=== PATIENT | female | born 1940 | race Caucasian/White ===

== ENCOUNTER 2023-10-20 13:33 | Emergency (ER) | payer MEDICARE, SELFPAY ==
[2023-10-20 13:41] VITALS: BP 152/96; PULSE 72; RESP 16; TEMP 37.1; O2SAT 95
--- NOTE | 2023-10-20 14:02 | ED_ITS ---
HPI - Recheck/Abnormal Lab/Rx 2 General: Chief Complaint: Recheck/Abnormal Lab/Rx Stated Complaint: sent ovewr by , uti, pain all over Time Seen by Provider: 10/20/23 13:41 Source: patient Mode of arrival: ambulatory Limitations: no limitations History of Present Illness: 83-year-old female who is sent here by h er PCP for possible UTI states she has had a UTI intermittently over the last 6 weeks she is on 2 rounds antibiotics states that today she had some urinary urgency she has had some bodyaches as well. She denies any severe pain denies any fever denies any vomiting or diarrhea denies any worsening improving factors. Review of Systems 2 Const: Denies: fever(s) or chills ENMT: Denies: throat pain or dental pain Card: Denies: chest pain Resp: Denies: dyspnea GI: Denies: abdominal pain, nausea, vomiting or diarrhea : Reports: urinary frequency; Denies: dysuria Musc: Denies: neck pain or back pain Skin/Breast: Denies: rash Neuro: Denies: headache(s) Physical Exam 2 Const: COMMON NORMALS: no acute distress, patient oriented x3 and healthy appearing HENMT: COMMON NORMALS: normocephalic and atraumatic HEAD & SCALP: n ormocephalic and atraumatic Neck/C-Spine: COMMON NORMALS: full ROM and supple Chest: COMMONS NORMALS: normal inspection of the chest Resp: COMMON NORMALS: normal respiratory effort, No retractions, No use of accessory muscles and clear to auscultation bilaterally AUSCULTATION: clear to auscultation bilaterally Cardio: COMMON NORMALS: regular rate, regular rhythm and No murmurs present (Cardio) RATE: regular rate RHYTHM: regular rhythm GI: COMMON NORMALS: Normal to inspection, nondistended, normoactive bowel sounds present, Soft to palpation, non-tender and no masses PALPATION: Yes Soft to palpation Extremity: COMMON NORMALS: normal to inspection and full ROM Neuro: COMMON NORMALS: patient oriented x3, moves all extremities and no focal motor deficits Psych: COMMON NORMALS: mental status grossly normal, Normal thought process present and cooperative THOUGHT PROCESS: Normal thought process present Skin: COMMON NORMALS: no rashes or lesions noted and no wounds GENERAL SKIN EXAM: no rashes or lesions noted Course 2 Vital Signs: Vital signs: Vital Signs Temperature 98.8 F 02/07/24 13:41 Pulse Rate 72 10/20/23 13:41 Respiratory Rate 16 10/20/23 13:41 Blood Pressure 152/96 10/20/23 13:41 Pulse Oximetry 95 10/20/23 13:41 Oxygen Delivery Me thod Room Air 10/20/23 13:41 MDM - Recheck/Abnormal Lab/Rx Medical Decision Making Patient presents here with bodyaches concern for UTI blood work urine here is all normal she is well-appearing here she stable for discharge she is follow-up with PCP and return if worsening. Medical Records I reviewed the patient's medical records. Lab Data I reviewed the patient's lab results. 10/20/23 13:58 10/20/23 13:58 Laboratory Results WBC 10.21 10^3/uL (3.29-11.43) 10/20/23 13:58 RBC 4.56 10^6/uL (3.85-5.65) 10/20/23 13:58 Hgb 12.50 g/dL (11.27-16.99) 10/20/23 13:58 Hct 40.0 % (36-47) 10/20/23 13:58 MCV 87.7 fl (85-98) 10/20/23 13:58 MCH 27.4 pg (27-33) 10/20/23 13:58 MCHC 31.3 g/dL (30-55) 10/20/23 13:58 RDW 13.6 % (12.1-15.1) 10/20/23 13:58 Plt Count 363 10^3/cmm (157-399) 10/20/23 13:58 MPV 11.0 fL (7.4-10.4) H 10/20/23 13:58 Neut % (Auto) 66.9 % 10/20/23 13:58 Lymph % (Auto) 20.0 % 10/20/23 13:58 [place] % (Auto) 10.4 % 10/20/23 13:58 Eos % (Auto) 1.5 % 10/20/23 13:58 Baso % (Auto) 0.8 % 10/20/23 13:58 Neut # (Auto) 6.84 10^3/uL (1.8-7.7) 10/20/23 13:58 Lymph # (Auto) 2.0 10^3/uL (0.8-4.8) 10/20/23 13:58 [place] # (Auto) 1.1 10^3/uL (0.2-0.9) H 10/20/23 13:58 Eos # (Auto) 0.2 10^3/uL (0.0-0.8) 10/20/23 13:58 Baso # (Auto) 0.1 10^3/uL (0.0-0.1) 10/20/23 13:58 Nucleated RBC % (auto) 0 % 10/20/23 13:58 Nucleated RBCs # 0.0 /100WBC 10/20/23 13:58 Sodium 134 mmol/L (136-145) L 10/20/23 13:58 Potassium 4.5 mmol/L (3.5-5.1) 10/20/23 13:58 Chloride 99 mmol/L (98-107) 10/20/23 13:58 Carbon Dioxide 24 mmol/L (22-29) 10/20/23 13:58 Anion Gap 15.5 (5-19) 10/20/23 13:58 BUN 19 mg/dL (8-23) 10/20/23 13:58 Creatinine 1.0 mg/dL (0.5-0.9) H 10/20/23 13:58 GFR Calculation Not Reportable 10/20/23 13:58 Glucose 97 mg/dL (65-115) 10/20/23 13:58 Calculated Osmolality 280 mOsm/kg (285-295) L 10/20/23 13:58 Calcium 9.5 mg/dL (8.5-10.5) 10/20/23 13:58 Total Bilirubin 0.3 mg/dL (0.15-1.2) 10/20/23 13:58 AST 20 U/L (0-32) 10/20/23 13:58 ALT 14 U/L (0-33) 10/20/23 13:58 Alkaline Phosphatase 91 U/L (35-105) 10/20/23 13:58 Total Protein 7.8 g/dL (6.6-8.7) 10/20/23 13:58 Albumin 3.8 g/dL (3.5-5.2) 10/20/23 13:58 Globulin 4.0 g/dL (1.3-4.6) 10/20/23 13:58 Urine Color Yellow (Yellow) 10/20/23 13:54 Urine Appearance Clear (CLEAR) 10/20/23 13:54 Urine pH 6 (5-7) 10/20/23 13:54 Ur Specific [place] 1.010 (1.005-1.030) 10/20/23 13:54 Urine Protein Neg (Negative) 10/20/23 13:54 Urine Glucose (UA) Norm (Normal) 10/20/23 13:54 Urine Ketones Negative (Negative) 10/20/23 13:54 Urine Blood 2+ (Negative) H 10/20/23 13:54 Urine Nitrate Negative (Negative) 10/20/23 13:54 Urine Bilirubin Neg (Negative) 10/20/23 13:54 Urine Urobilinogen Norm mg/dL (Negative) 10/20/23 13:54 Ur Leukocyte Esterase Negative (Negative) 10/20/23 13:54 Amorphous Sediment Not Reportable 10/20/23 13:54 All radiology interpretation(s) finalized by discharge Discharge Plan Discharge Patient Disposition: Home Clinical Impression: Myalgia Condition: Stable Prescriptions: New Naprosyn 500 mg tablet 500 mg PO BID PRN (Reason: pain) Qty: 20 0RF No Action simvastatin 40 mg tablet 40 mg PO QPM levothyroxine 75 mcg tablet 75 mcg PO QPM paroxetine HCl 20 mg tablet 20 mg PO QPM Discharge Orders: Discharge ED (Routine); Ordered 10/20/23 Ordered By: Rosa Pedroza Discharge Diet: Advance as tolerated Discharge Activity: Resume usual activity Patient Instructions: Myalgia, Musculoskeletal Pain (ED) Coding Level of Care Code ED Stitcher Hand for Kathy Kimball
[2023-10-20 14:08] LABS: Basophils # 0.1 10^3/uL (0.0-0.1); Basophils % 0.8 %; Eosinophils # 0.2 10^3/uL (0.0-0.8); Eosinophils % 1.5 %; Mean Corpuscular HGB Conc 31.3 g/dL (30-55); Mean Corpuscular Hemoglobin 27.4 pg (27-33); Mean Corpuscular Volume 87.7 fl (85-98); Monocytes # 1.1 10^3/uL (0.2-0.9); Monocytes % 10.4 %; Neutrophils # 6.84 10^3/uL (1.8-7.7); Neutrophils % 66.9 %; Nucleated Red Blood Cells % 0 %; Platelet Count 363 10^3/cmm (157-399); Red Blood Count 4.56 10^6/uL (3.85-5.65); Red Cell Distribution Width 13.6 % (12.1-15.1); White Blood Count 10.21 10^3/uL (3.29-11.43)
[2023-10-20] MEDS: ketorolac 30 mg/mL INJ 15 MG IVP (14:10)
[2023-10-20] MEDS: sodium chloride 0.9% 1,000 ML 999 ML IV (14:10)
[2023-10-20 14:28] LABS: Alanine Aminotransferase 14 U/L (0-33); Albumin Level 3.8 g/dL (3.5-5.2); Alkaline Phosphatase 91 U/L (35-105); Anion Gap 15.5 (5-19); Aspartate Amino Transferase 20 U/L (0-32); Blood Urea Nitrogen 19 mg/dL (8-23); Calcium 9.5 mg/dL (8.5-10.5); Carbon Dioxide 24 mmol/L (22-29); Chloride 99 mmol/L (98-107); Glucose 97 mg/dL (65-115); Osmolality Calculated 280 mOsm/kg (285-295); Potassium 4.5 mmol/L (3.5-5.1); Sodium 134 mmol/L (136-145); Total Bilirubin 0.3 mg/dL (0.15-1.2); Total Protein 7.8 g/dL (6.6-8.7)
[2023-10-20 15:08] LABS: Add Urine Microscopic? YES; Bilirubin Urine Neg (Negative); Blood Urine 2+ (Negative); Glucose Urine UA Norm (Normal); Ketones Urine Negative (Negative); Leukocyte Esterase Urine Negative (Negative); Nitrate Urine Negative (Negative); Protein Urine Neg (Negative); Urine Appearance Clear (CLEAR); Urine Color Yellow (Yellow); Urobilinogen Urine Norm (Negative); pH Urine 6 (5-7)
[2023-10-20 15:15] LABS: Add Urine Culture? No; Bacteria Urine TRACE /hpf; Mucus Urine TRACE /hpf; RBC Urine 0-4 /hpf (0-2); Squamous Epithelial Cell Urine 0-4 /hpf (0-5); Transitional Epi Cells Urine 0-4 /hpf; WBC Urine 0-4 /hpf (0-5)
== END 2023-10-20 15:32 | disposition home or self-care (01) ==
PROVIDERS: Emergency Provider Emergency Medicine
DX: M79.10 Myalgia, unspecified site (principal)
CPT/HCPCS: 36415; 80053; 81001; 85025; 96361; 96374; 99284; J1885; J7030

== ENCOUNTER → 2025-05-01 15:22 | Outpatient (BNVA) | payer MEDICARE, SELFPAY | PROVIDERS: PCP Family Medicine; Visit Provider Family Medicine | DX: E03.9 Hypothyroidism, unspecified (principal); E78.5 Hyperlipidemia, unspecified; F41.9 Anxiety disorder, unspecified; Z51.81 Encounter for therapeutic drug level monitoring; M54.2 Cervicalgia; R51.9 Headache, unspecified; E78.2 Mixed hyperlipidemia | CPT/HCPCS: 80053; 80061; 84439; 84443; 84481; 85025; 85651; 86038; 86140 ==

== ENCOUNTER → 2025-05-31 09:19 | Outpatient (BNVA) | payer MEDICARE, SELFPAY | PROVIDERS: PCP Family Medicine; Visit Provider Family Medicine | DX: M54.2 Cervicalgia (principal); R51.9 Headache, unspecified; M47.812 Spondylosis without myelopathy or radiculopathy, cervical region | CPT/HCPCS: 72040 ==